=== PATIENT | male | born 1965 | race Caucasian/White ===

== ENCOUNTER 2025-01-31 05:57 | Day surgery (SDC) | payer BC, SELFPAY ==
[2025-01-31] VITALS (9 sets, daily range): BP systolic 132–156; BP diastolic 94–109; BMI 27.8
[2025-01-31] MEDS: CELEBREX 200 MG PO (06:30)
[2025-01-31] MEDS: TYLENOL 1000 MG PO (06:30)
[2025-01-31] MEDS: NORMOSOL-R/PLASMALYTE-A 1000 IV (06:31)
[2025-01-31] MEDS: SUBLIMAZE 25 MCG IV (09:23)
[2025-01-31] MEDS: ROXICODONE 5 MG PO (10:09)
== END 2025-01-31 10:46 | disposition home or self-care (01) ==
LOC: SDS 05:57
PROVIDERS: ATTENDING PHYSICIAN Orthopaedic Surgery Hand Surgery
PROC: 0LN70ZZ Release Right Hand Tendon, Open Approach (ICD-10-PCS; 2025-01-31)
PROC: 0LQ80ZZ Repair Left Hand Tendon, Open Approach (ICD-10-PCS; 2025-01-31)
PROC: 0MQ80ZZ Repair Left Hand Bursa and Ligament, Open Approach (ICD-10-PCS; 2025-01-31)
DX: M20.022 Boutonniere deformity of left finger(s) (principal); M65.351 Trigger finger, right little finger; S53.32XA Traumatic rupture of left ulnar collateral ligament, initial encounter; X58.XXXA Exposure to other specified factors, initial encounter
CPT/HCPCS: 26426; 26055; 26540; A4649; C1713